=== PATIENT | female | born 1975 | race Caucasian/White ===

== ENCOUNTER 2017-06-27 09:31 | Day surgery (SDC) | payer BC, MEDICARE ==
[2017-06-21 12:10] LABS: Urine WBC None Seen /hpf (0 - 5)
[2017-06-21 12:15] LABS: Basophils # (auto) 0 uL; Basophils % (auto) 0.6 % (0.0-2.0); Eosinophils # (auto) 0 uL; Eosinophils % (auto) 0.7 % (0.0-7.0); Hemoglobin 13.8 g/dL (12.2-16.2); Lymphocytes # (auto) 2.5 uL; Lymphocytes % (auto) 39.4 % (10.0-50.0); Mean Corpuscular Hgb Conc. 33.8 g/dL (32.0-36.0); Mean Corpuscular Volume 88.6 fL (80.0-100.0); Monocytes # (auto) 0.3 uL; Monocytes % (auto) 5.2 % (0.0-12.0); Neutrophils # (auto) 3.4 uL; Neutrophils % (auto) 54.1 % (37.0-80.0); Nucleated Red Blood Cells % 0.1 %; Platelet Count (auto) 224 10^3/uL (140-450); Red Blood Cells 4.62 10^6/uL (4.0-5.20); Red Cell Distribution Width 13.3 % (11.8-14.3); White Blood Cell 6.2 10^3/uL (4.4-10.8)
[2017-06-21 12:36] LABS: INR 0.96 (0.9-1.15); Partial Thromboplastin Time 26.6 sec (22.64-33.71); Prothrombin Time 10.5 sec (9.37-12.3)
[2017-06-21 12:41] LABS: Urine Bacteria NONE SEEN /hpf (None Seen); Urine Blood Negative /uL (Negative); Urine Specific Gravity 1.012 (1.001-1.035)
[2017-06-21 13:00] LABS: Calcium 8.6 mg/dL (8.5-10.1); Potassium 3.9 mmol/L (3.5-5.1)
[~2017-06-27] VITALS: Ht 167.6 cm; Wt 72.6 kg
[~2017-06-27 09:31] MED LIST: ALPR2TAB2 PO; CARI-277 PO; GABA-339 PO; HYDR-531 PO; OMEP20CA74 PO; ONDA8TAB6 PO; PROG200C6 PO; QUET400T PO; ZOLP-158 PO; [UNRECOGNIZED DRUG - CODE] PO
[2017-06-27] MEDS ORDERED: LIDOCAINE W/ EPINEPHRINE 2% INJ 20ML VIAL ONE (09:45)
[2017-06-27] MEDS ORDERED: CONJ ESTROGENS 0.625MG/GM VAG CRM 30GM PV ONE ×2 (09:45→11:15)
[2017-06-27] MEDS ORDERED: BUPIVACAINE 0.25% INJ 50ML VIAL ONE (09:45)
[2017-06-27] MEDS ORDERED: ceFAZolin 1GM VL ONE (09:45)
[2017-06-27] MEDS ORDERED: fentaNYL CITRATE 100 MCG/2 ML VL ONE (09:57)
[2017-06-27] MEDS ORDERED: MIDAZOLAM HCL 1MG/1ML-2 ML VIAL ONE (09:57)
[2017-06-27] MEDS ORDERED: MEPERIDINE HCL (50 MG/ML) 1 ML VIAL ONE (09:58)
[2017-06-27] MEDS ORDERED: ceFAZolin 1GM/50ML 50 ML IV ONE (10:02)
[2017-06-27] MEDS ORDERED: PROPOFOL 10 MG/ML 20 ML IV ONE (10:19)
[2017-06-27] MEDS ORDERED: DEXAMETHASONE SOD PHOS 10MG/1ML VIAL INJ ONE (10:19)
[2017-06-27] MEDS ORDERED: KETOROLAC TROMETH 30 MG/ML 1ML VIAL ONE (10:30)
[2017-06-27] MEDS ORDERED: LIDOCAINE 2%HCL (LOCAL ANESTH.) INJ 20ML MDV ONE (10:38)
[2017-06-27] MEDS ORDERED: KETOROLAC TROMETH 30 MG/ML 1ML VIAL IV ONE (10:45)
[2017-06-27] MEDS ORDERED: ePHEDrine SULFATE 50 MG/ML AMP IV PRN (10:45)
[2017-06-27] MEDS ORDERED: ONDANSETRON HCL 4 MG/2 ML VIAL IV ONE (10:45)
[2017-06-27] MEDS ORDERED: LABETALOL HCL 5 MG/ML 4ML SYRINGE IV PRN (10:45)
[2017-06-27] MEDS ORDERED: MIDAZOLAM HCL 1MG/1ML-2 ML VIAL IV PRN (10:45)
[2017-06-27] MEDS ORDERED: BUPIVACAINE 0.25% INJ 50ML VIAL IJ ONE (11:15)
[2017-06-27] MEDS ORDERED: LIDOCAINE 2% HCL (LOCAL ANESTH.) INJ 50ML MDV IJ ONE (11:15)
[2017-06-27] MEDS: HYDROmorphone HCL 2 MG/ML VL IV PRN ×2 (11:50→12:00)
[2017-06-27] MEDS ORDERED: MORPHINE SULF INJ 2 MG/ML SYRINGE 1ML IV ONE (12:00)
[2017-06-27 12:15] VITALS: BP 122/82
== END 2017-06-27 12:23 | disposition home or self-care (01) ==
LOC: SUR 09:31
PROVIDERS: ATTEND Obstetrics & Gynecology
DX: N81.10 Cystocele, unspecified (principal); N89.8 Other specified noninflammatory disorders of vagina; I10 Essential (primary) hypertension; E89.0 Postprocedural hypothyroidism; Z90.710 Acquired absence of both cervix and uterus; K21.9 Gastro-esophageal reflux disease without esophagitis; E03.9 Hypothyroidism, unspecified; N39.0 Urinary tract infection, site not specified; I49.9 Cardiac arrhythmia, unspecified; M19.90 Unspecified osteoarthritis, unspecified site; Z88.8 Allergy status to other drugs, medicaments and biological substances; F31.9 Bipolar disorder, unspecified
CPT/HCPCS: 36415; 45560; 57106; 57267; 80048; 81001; 84702; 85025; 85610; 85730; 87086; 88302; J0690; J1100; J1170; J1885; J2175; J2250; J2405; J2704; J3010; J3490

== ENCOUNTER → 2017-07-02 | Emergency (ER) | payer BC, MEDICARE | END | disposition left against medical advice (07) | LOC: ER 15:43 | DX: K62.5 Hemorrhage of anus and rectum (principal); Z53.21 Procedure and treatment not carried out due to patient leaving prior to being seen by health care provider ==

== ENCOUNTER 2017-07-03 21:12 | Inpatient (IN) | payer BC, MEDICARE ==
[~2017-07-03] VITALS: Ht 167.6 cm; Wt 52.2 kg
[2017-07-03 22:22] LABS: Urine Bilirubin Negative (Negative); Urine Blood 3+ /uL (Negative); Urine Color Yellow (Yellow); Urine Glucose Normal (Normal); Urine Ketone Negative (Negative); Urine Nitrite Negative (Negative); Urine RBC 127 /hpf (0 - 4); Urine Squamous Epithelial Cell FEW /hpf (<5); Urine Urobilinogen Normal (Negative); Urine WBC Clumps PRESENT /hpf (None Seen)
[2017-07-03 22:27] LABS: Basophils # (auto) 0.1 uL; Eosinophils # (auto) 0.1 uL; Eosinophils % (auto) 1.6 % (0.0-7.0); Hematocrit 28.4 % (36.0-46.0); Hemoglobin 9.8 g/dL (12.2-16.2); Lymphocytes % (auto) 30.9 % (10.0-50.0); Mean Corpuscular Hemoglobin 30.5 pg (28.0-32.0); Mean Corpuscular Hgb Conc. 34.5 g/dL (32.0-36.0); Mean Corpuscular Volume 88.3 fL (80.0-100.0); Mean Platelet Volume 8.9 fL (6.9-10.8); Monocytes # (auto) 0.5 uL; Monocytes % (auto) 7.7 % (0.0-12.0); Neutrophils # (auto) 3.7 uL; Neutrophils % (auto) 58.8 % (37.0-80.0); Platelet Count (auto) 216 10^3/uL (140-450); Red Cell Distribution Width 13.5 % (11.8-14.3); White Blood Cell 6.4 10^3/uL (4.4-10.8)
[2017-07-03 22:36] LABS: INR 0.91 (0.9-1.15); Partial Thromboplastin Time 26.4 sec (22.64-33.71); Prothrombin Time 9.9 sec (9.37-12.3)
[2017-07-03 22:42] LABS: Albumin 3.1 g/dL (3.4-5.0); Bilirubin, Total 0.3 mg/dL (0.2-1.0); Calcium 8.2 mg/dL (8.5-10.1); Magnesium 2.6 mg/dL (1.6-2.6); Potassium 3.4 mmol/L (3.5-5.1); Total Protein 6.2 g/dL (6.4-8.2)
[2017-07-04] MEDS ORDERED: POTASSIUM CHL 10 Meq TABLET PO ONE (05:30)
[2017-07-04] MEDS ORDERED: MORPHINE SULF INJ 2 MG/ML SYRINGE 1ML IV ONE (05:45)
[2017-07-04 05:48] LABS: Basophils # (auto) 0 uL; Basophils % (auto) 0.3 % (0.0-2.0); Eosinophils # (auto) 0.1 uL; Eosinophils % (auto) 2.1 % (0.0-7.0); Hemoglobin 10.2 g/dL (12.2-16.2); Lymphocytes # (auto) 1.7 uL; Lymphocytes % (auto) 31.6 % (10.0-50.0); Mean Corpuscular Hemoglobin 30.1 pg (28.0-32.0); Mean Corpuscular Hgb Conc. 34.2 g/dL (32.0-36.0); Mean Corpuscular Volume 88.1 fL (80.0-100.0); Mean Platelet Volume 8.7 fL (6.9-10.8); Monocytes # (auto) 0.4 uL; Monocytes % (auto) 8.4 % (0.0-12.0); Neutrophils # (auto) 3.1 uL; Neutrophils % (auto) 57.6 % (37.0-80.0); Nucleated Red Blood Cells % 0.1 %; Platelet Count (auto) 250 10^3/uL (140-450); Red Cell Distribution Width 13.4 % (11.8-14.3); White Blood Cell 5.3 10^3/uL (4.4-10.8)
[2017-07-04] MEDS ORDERED: ACETAMINOPHEN 500 MG TAB PO PRN ×2 (06:15→16:15)
[2017-07-04] MEDS ORDERED: ZOLPIDEM TARTRATE 5 MG TAB PO PRN ×2 (06:15→06:30)
[2017-07-04] MEDS ORDERED: NITROGLYCERIN 0.4 MG SL TAB SL PRN ×2 (06:15→16:15)
[2017-07-04] MEDS ORDERED: cefTRIAXone 1GM/10ml IVPUSH 10 ML IV ONE (06:15)
[2017-07-04] MEDS ORDERED: SODIUM CHLORIDE 0.9% 1,000 ML IV SCH (06:15)
[2017-07-04] MEDS ORDERED: HYDROcodone-ACET 5/325MG TAB PO PRN (06:15)
[2017-07-04] MEDS ORDERED: MORPHINE SULF INJ 2 MG/ML SYRINGE 1ML IV PRN ×2 (06:15→16:15)
[2017-07-04] MEDS ORDERED: ONDANSETRON HCL 4 MG/2 ML VIAL IV PRN (06:15)
[2017-07-04 06:28] LABS: BUN/Creatinine Ratio 16.7; Calcium 8.4 mg/dL (8.5-10.1); Potassium 3.8 mmol/L (3.5-5.1)
[2017-07-04] MEDS ORDERED: LORazepam 2MG/ML-1ML VIAL IV PRN (08:30)
[2017-07-04 09:05] LABS: INR 0.92 (0.9-1.15)
[2017-07-04] MEDS ORDERED: GASTROGRAFIN 30 ML SOL ONE ×2 (09:07→09:56)
[2017-07-04] MEDS ORDERED: BUPIVACAINE 0.25% INJ 50ML VIAL ONE (14:05)
[2017-07-04] MEDS ORDERED: LIDOCAINE 1% HCL (LOCAL ANESTH.) INJ 20ML MDV ONE (14:05)
[2017-07-04] MEDS ORDERED: ceFAZolin 1GM/50ML 50 ML IV ONE (14:10)
[2017-07-04] MEDS ORDERED: CONJ ESTROGENS 0.625MG/GM VAG CRM 30GM PV ONE (14:11)
[2017-07-04] MEDS ORDERED: PROPOFOL 10 MG/ML 20 ML IV ONE (14:13)
[2017-07-04] MEDS ORDERED: fentaNYL CITRATE 100 MCG/2 ML VL ONE ×2 (14:13→14:50)
[2017-07-04] MEDS ORDERED: MIDAZOLAM HCL 1MG/1ML-2 ML VIAL ONE (14:13)
[2017-07-04] MEDS ORDERED: METHYLENE BLUE 0.5% 5MG/ML 10ml AMP IV ONE (14:52)
[2017-07-04] MEDS ORDERED: HYDROmorphone HCL 2 MG/ML VL ONE (15:47)
[2017-07-04] MEDS: SODIUM CHLORIDE 0.9% 1,000 ML IV SCH (16:13)
[2017-07-04] MEDS ORDERED: CLINDAMYCIN 900MG IV 50 ML IV ONE (16:15)
[2017-07-04] MEDS ORDERED: ePHEDrine SULFATE 50 MG/ML AMP IV PRN (16:15)
[2017-07-04] MEDS ORDERED: ONDANSETRON HCL 4 MG/2 ML VIAL IV ONE (16:15)
[2017-07-04] MEDS ORDERED: hydrALAZINE HCL 20 MG/ML VL IV PRN (16:15)
[2017-07-04] MEDS ORDERED: KETOROLAC TROMETH 30 MG/ML 1ML VIAL ONE (16:18)
[2017-07-04] MEDS ORDERED: KETOROLAC TROMETH 30 MG/ML 1ML VIAL IV ONE (16:45)
[2017-07-04] MEDS: HYDROmorphone HCL 2 MG/ML VL IV PRN ×3 (16:50→21:08)
[2017-07-04] MEDS: GABAPENTIN 300 MG CAP PO SCH ×2 (17:55→21:07)
[2017-07-04] MEDS: LACTULOSE 20Gm/30ML SOLN PO SCH (17:56)
[2017-07-04] MEDS: ONDANSETRON HCL 4 MG/2 ML VIAL IV PRN (18:10)
[2017-07-04] MEDS ORDERED: METR500T14 PO (18:22)
[2017-07-04 21:53] VITALS: BP 124/83
[2017-07-04] MEDS: LORazepam 2MG/ML-1ML VIAL IV PRN (22:34)
[2017-07-05] MEDS: SODIUM CHLORIDE 0.9% 1,000 ML IV SCH ×3 (00:13→17:11)
[2017-07-05] MEDS: HYDROmorphone HCL 2 MG/ML VL IV PRN ×2 (03:39→08:36)
[2017-07-05] MEDS: ONDANSETRON HCL 4 MG/2 ML VIAL IV PRN (03:40)
[2017-07-05 05:04] VITALS: BP 109/68
[2017-07-05] MEDS: GABAPENTIN 300 MG CAP PO SCH ×2 (05:31→13:55)
[2017-07-05] MEDS: LACTULOSE 20Gm/30ML SOLN PO SCH ×4 (05:31→18:00)
[2017-07-05 05:50] LABS: Basophils # (auto) 0.1 uL; Basophils % (auto) 0.9 % (0.0-2.0); Eosinophils # (auto) 0.2 uL; Eosinophils % (auto) 2.6 % (0.0-7.0); Hematocrit 26.2 % (36.0-46.0); Hemoglobin 9.1 g/dL (12.2-16.2); Lymphocytes # (auto) 1.7 uL; Lymphocytes % (auto) 26.5 % (10.0-50.0); Mean Corpuscular Hemoglobin 30.4 pg (28.0-32.0); Mean Corpuscular Hgb Conc. 34.6 g/dL (32.0-36.0); Mean Corpuscular Volume 87.7 fL (80.0-100.0); Mean Platelet Volume 8.1 fL (6.9-10.8); Monocytes # (auto) 0.6 uL; Monocytes % (auto) 9.6 % (0.0-12.0); Neutrophils % (auto) 60.4 % (37.0-80.0); Platelet Count (auto) 249 10^3/uL (140-450); Red Cell Distribution Width 13.3 % (11.8-14.3); White Blood Cell 6.5 10^3/uL (4.4-10.8)
[2017-07-05 07:40] VITALS: BP 105/68
[2017-07-05] MEDS ORDERED: cefTRIAXone 1GM/10ml IVPUSH 10 ML IV SCH (09:00)
[2017-07-05] MEDS ORDERED: HYDROcodone-ACET 10/325MG TAB PO PRN (10:15)
[2017-07-05] MEDS ORDERED: ALPRAZolam 0.5 MG TAB PO PRN (10:15)
[2017-07-05] MEDS ORDERED: CARISOPRODOL 350 MG TAB PO PRN (10:15)
[2017-07-05] MEDS ORDERED: THYROID 60 MG TAB PO ONE (11:00)
[2017-07-05] MEDS ORDERED: PANTOPRAZOLE 40 MG TAB PO ONE (11:00)
[2017-07-05] MEDS: LORazepam 2MG/ML-1ML VIAL IV PRN ×2 (11:08→17:41)
[2017-07-05] MEDS ORDERED: MORPHINE SULFATE 4 MG/ML SYRG IV PRN (11:15)
[2017-07-05 13:00] VITALS: BP 118/72
[2017-07-05 16:42] VITALS: BP 125/75
[2017-07-05 18:04] VITALS: BP 125/75
[2017-07-06] MEDS ORDERED: THYROID 60 MG TAB PO SCH (10:00)
[2017-07-06] MEDS ORDERED: PANTOPRAZOLE 40 MG TAB PO SCH (10:00)
== END 2017-07-05 16:24 | disposition home or self-care (01) | DRG 330 ==
LOC: EDBD 21:12 → ER 21:15 → OVERFLOW 21:16 → WEST WING 07-04 12:28 → EAST 07-04 17:42
PROVIDERS: ADMIT Nurse Practitioner Family; ATTEND Obstetrics & Gynecology
PROC: 0DQP0ZZ Repair Rectum, Open Approach (ICD-10-PCS; 2017-07-04)
PROC: 0UQG0ZZ Repair Vagina, Open Approach (ICD-10-PCS; principal; 2017-07-04 14:21)
DX: N82.3 Fistula of vagina to large intestine (principal); K92.2 Gastrointestinal hemorrhage, unspecified; N39.0 Urinary tract infection, site not specified; D64.9 Anemia, unspecified; E78.5 Hyperlipidemia, unspecified; E03.9 Hypothyroidism, unspecified; K21.9 Gastro-esophageal reflux disease without esophagitis; K59.00 Constipation, unspecified; N93.9 Abnormal uterine and vaginal bleeding, unspecified; E87.6 Hypokalemia; B96.20 Unspecified Escherichia coli [E. coli] as the cause of diseases classified elsewhere; F17.210 Nicotine dependence, cigarettes, uncomplicated; F41.9 Anxiety disorder, unspecified; Z82.49 Family history of ischemic heart disease and other diseases of the circulatory system; Z82.3 Family history of stroke; Z79.899 Other long term (current) drug therapy; Z90.710 Acquired absence of both cervix and uterus; Z88.8 Allergy status to other drugs, medicaments and biological substances
CPT/HCPCS: 36415; 71020; 72192; 72194; 74176; 80048; 80053; 81001; 83735; 84702; 85025; 85610; 85730; 86850; 86900; 86901; 87086; 87088; 87186; 96365; 96375; 96376; J0690; J1885; J2001; J2250; J2405; J2704; J3490

== ENCOUNTER 2017-12-26 11:52 | Day surgery (SDC) | payer BC, MEDICARE ==
[2017-12-23 13:07] LABS: Basophils # (auto) 0.1 uL; Basophils % (auto) 1.3 % (0.0-2.0); Eosinophils # (auto) 0.1 uL; Eosinophils % (auto) 2.1 % (0.0-7.0); Hematocrit 42.5 % (36.0-46.0); Hemoglobin 13.9 g/dL (12.2-16.2); Lymphocytes # (auto) 1.9 uL; Lymphocytes % (auto) 34.3 % (10.0-50.0); Mean Corpuscular Hemoglobin 30.2 pg (28.0-32.0); Mean Corpuscular Hgb Conc. 32.8 g/dL (32.0-36.0); Monocytes # (auto) 0.4 uL; Monocytes % (auto) 7.8 % (0.0-12.0); Neutrophils % (auto) 54.5 % (37.0-80.0); Nucleated Red Blood Cells % 0.1 %; Platelet Count (auto) 226 10^3/uL (140-450); Red Blood Cells 4.62 10^6/uL (4.0-5.20); Red Cell Distribution Width 13.7 % (11.8-14.3); White Blood Cell 5.5 10^3/uL (4.4-10.8)
[2017-12-23 13:09] LABS: Urine Bacteria MANY /hpf (None Seen); Urine Blood Negative /uL (Negative); Urine Specific Gravity 1.004 (1.001-1.035); Urine WBC 2 /hpf (0 - 5)
[2017-12-23 13:27] LABS: INR 0.93 (0.9-1.15); Partial Thromboplastin Time 26.9 sec (23.78-33.04)
[2017-12-23 13:49] LABS: Albumin 4.2 g/dL (3.4-5.0); BUN/Creatinine Ratio 9.6; Bilirubin, Total 0.3 mg/dL (0.2-1.0); Potassium 4.3 mmol/L (3.5-5.1); Total Protein 7.6 g/dL (6.4-8.2)
[~2017-12-26] VITALS: Ht 167.6 cm; Wt 72.6 kg
[~2017-12-26 11:52] MED LIST changes: -CARI-277 PO; +LEVO75TA50 PO; +OMEG100078 PO; -ONDA8TAB6 PO; +SIMV-8 PO; +TIZA4CAP PO; -[UNRECOGNIZED DRUG - CODE] PO
[2017-12-26] MEDS ORDERED: ceFAZolin 1GM/50ML 50 ML IV ONE (12:03)
[2017-12-26] MEDS ORDERED: METHYLENE BLUE 0.5% 5MG/ML 10ml AMP IV ONE (12:05)
[2017-12-26] MEDS ORDERED: LIDOCAINE W/ EPINEPHRINE 1 % INJ 30ML ONE (12:05)
[2017-12-26] MEDS ORDERED: CONJ ESTROGENS 0.625MG/GM VAG CRM 30GM PV ONE (12:05)
[2017-12-26] MEDS ORDERED: BUPIVACAINE 0.25% INJ 50ML VIAL ONE (12:06)
[2017-12-26] MEDS ORDERED: ceFAZolin 1GM VL ONE (12:06)
[2017-12-26] MEDS ORDERED: LIDOCAINE W/ EPINEPHRINE 1% 20ML VIAL ONE ×2 (12:10→12:11)
[2017-12-26] MEDS ORDERED: ONDANSETRON HCL 4 MG/2 ML VIAL ONE (12:33)
[2017-12-26] MEDS ORDERED: MEPERIDINE HCL (50 MG/ML) 1 ML VIAL ONE (12:33)
[2017-12-26] MEDS ORDERED: ROCURONIUM 10MG/ML 10ML VIAL IV ONE (12:33)
[2017-12-26] MEDS ORDERED: fentaNYL CITRATE 100 MCG/2 ML VL ONE ×2 (12:33→14:18)
[2017-12-26] MEDS ORDERED: SODIUM CHLORIDE LOCK 10 ML ONE (12:33)
[2017-12-26] MEDS ORDERED: MIDAZOLAM HCL 1MG/1ML-2 ML VIAL ONE (12:33)
[2017-12-26] MEDS ORDERED: PROPOFOL 10 MG/ML 20 ML IV ONE (12:33)
[2017-12-26] MEDS ORDERED: VASOPRESSIN 20 UNIT/ML ONE (12:51)
[2017-12-26] MEDS ORDERED: fentaNYL CITRATE 100 MCG/2 ML VL IV ONE (13:00)
[2017-12-26] MEDS ORDERED: METOCLOPRAMIDE HCL 5MG/ml INJ 2ml VIAL IV ONE (13:00)
[2017-12-26] MEDS ORDERED: KETOROLAC TROMETH 30 MG/ML 1ML VIAL IV ONE (13:00)
[2017-12-26] MEDS ORDERED: KETOROLAC TROMETH 60MG/2ML VIAL IM ONE ×2 (13:44→14:56)
[2017-12-26] MEDS ORDERED: ONDANSETRON HCL 4 MG/2 ML VIAL IV PRN (14:00)
[2017-12-26 14:53] VITALS: BP 145/96
[2017-12-26] MEDS ORDERED: GLYCOPYRROLATE 0.2 MG/ML 1ML VIAL ONE (14:56)
[2017-12-26] MEDS ORDERED: NEOSTIGMINE 1 MG/ML INJ (10mg/10ML VIAL) ONE (14:56)
== END 2017-12-26 15:08 | disposition home or self-care (01) ==
LOC: SUR 11:52
PROVIDERS: ATTEND Obstetrics & Gynecology
DX: N76.0 Acute vaginitis (principal); N89.8 Other specified noninflammatory disorders of vagina; N35.9 Urethral stricture, unspecified; E07.9 Disorder of thyroid, unspecified; F31.9 Bipolar disorder, unspecified; M19.90 Unspecified osteoarthritis, unspecified site; E78.5 Hyperlipidemia, unspecified; I10 Essential (primary) hypertension; E66.9 Obesity, unspecified; I49.9 Cardiac arrhythmia, unspecified; Z79.891 Long term (current) use of opiate analgesic; Z79.899 Other long term (current) drug therapy; Z98.51 Tubal ligation status; Z80.42 Family history of malignant neoplasm of prostate; Z82.49 Family history of ischemic heart disease and other diseases of the circulatory system; Z82.3 Family history of stroke; Z68.25 Body mass index [BMI] 25.0-25.9, adult; E89.0 Postprocedural hypothyroidism; Z90.710 Acquired absence of both cervix and uterus; Z88.8 Allergy status to other drugs, medicaments and biological substances
CPT/HCPCS: 36415; 57106; 57287; 80053; 81001; 84702; 85025; 85610; 85730; 87086; 88302; 88305; J0690; J1885; J2175; J2250; J2405; J2704; J2765; J3010; J3490